=== PATIENT | female | born 1975 | race Hispanic/Latino ===

== ENCOUNTER 2022-07-28 07:55 | Emergency (ER) | payer OTHER ==
[~2022-07-28] VITALS: Ht 157.5 cm; Wt 61.7 kg
[2022-07-28] MEDS ORDERED: LACTATED RINGERS 1000ML 1,000 ML IV ONE (08:00)
[2022-07-28 08:16] LABS: BASOPHILS % (AUTO) 0.6 % (0.0-5.0); EOSINOPHILS % (AUTO) 0.6 % (0.0-8.0); HEMATOCRIT 42.1 % (36-48); LYMPHOCYTES % (AUTO) 13.5 % (21.0-51.0); MEAN CORPUSCULAR HEMOGLOBIN 31.3 pg (27.0-33.0); MEAN CORPUSCULAR HGB CONC 32.8 g/dL (32.0-36.0); MEAN CORPUSCULAR VOLUME 95.5 fL (79-99); MONOCYTES % (AUTO) 3.6 % (3.0-13.0); NEUTROPHILS % (AUTO) 81.4 % (40.0-77.0); PLATELET COUNT (AUTO) 308 K/uL (130-400); RED BLOOD CELL COUNT(AUTO) 4.41 MIL/uL (4.00-5.50); RED CELL DISTRIBUTION WIDTH 13.2 % (11.0-15.5); WHITE BLOOD COUNT (AUTO) 9.1 K/uL (4.8-10.8)
[2022-07-28] MEDS ORDERED: MORPHINE 2 MG SYG ONE (08:20)
[2022-07-28] MEDS ORDERED: ONDANSETRON 4MG INJ ONE (08:20)
[2022-07-28 08:22] LABS: APPEARANCE,URINE CLOUDY (CLEAR); BILIRUBIN,URINE NEGATIVE (NEGATIVE); COLOR,URINE LIGHT-ORANGE (YELLOW); GLUCOSE, URINE (UA) NEGATIVE (NEGATIVE); KETONES,URINE NEGATIVE (NEGATIVE); LEUKOCYTE ESTERASE ,URINE 75 Leu/uL (NEGATIVE); NITRATE,URINE NEGATIVE (NEGATIVE); OCCULT BLOOD,URINE LARGE (NEGATIVE); PROTEIN,URINE 30 mg/dL (NEGATIVE); UROBILINOGEN,URINE 0.2 mg/dL (0.2-1.0)
[2022-07-28 08:26] LABS: INR 0.93 (0.85-1.15); PROTHROMBIN TIME 9.5 SEC (9.6-11.6)
[2022-07-28] MEDS ORDERED: MORPHINE 2 MG SYG IVP ONE (08:30)
[2022-07-28] MEDS ORDERED: ONDANSETRON 4MG INJ IVP ONE (08:30)
[2022-07-28 08:33] LABS: CREATININE 0.9 mg/dL (0.5-1.5); POTASSIUM 3.8 mmol/L (3.5-5.1)
[2022-07-28 08:41] LABS: BACTERIA,URINE RARE /HPF (None Seen); MUCUS,URINE RARE LPF (None Seen); RBC,URINE TNTC /HPF (0-1); SQUAMOUS EPITHELIAL CELL,UR FEW /HPF (0-2); YEAST,URINE BUDDING RARE /HPF (None Seen)
[2022-07-28 08:44] LABS: ALBUMIN 3.8 g/dL (3.5-5.0); B-TYPE NATRIURETIC PEPTIDE 9 pg/mL (0-100); TOTAL PROTEIN, SERUM 7.7 g/dL (6.0-8.3)
[2022-07-28] MEDS ORDERED: KETOROLAC 15MG/ML VIAL (15MG/ML) ONE (09:38)
[2022-07-28] MEDS ORDERED: TAMSULOSIN HCL 0.4 MG CAP.ER.24H ONE (09:38)
[2022-07-28] MEDS ORDERED: KETO10TA2 PO (09:47)
[2022-07-28] MEDS ORDERED: TAMS-1 PO (09:47)
[2022-07-28] MEDS ORDERED: CEPH500B PO (09:47)
[2022-07-28 09:49] VITALS: BP 144/68
[2022-07-28] MEDS ORDERED: TAMSULOSIN HCL 0.4 MG CAP.ER.24H PO ONE (10:00)
[2022-07-28] MEDS ORDERED: KETOROLAC 15MG/ML VIAL (15MG/ML) IV ONE (10:00)
== END 2022-07-28 09:52 | disposition home or self-care (01) ==
LOC: EDH 07:55
DX: N39.0 Urinary tract infection, site not specified (principal); N20.1 Calculus of ureter; M41.9 Scoliosis, unspecified; Z90.49 Acquired absence of other specified parts of digestive tract
CPT/HCPCS: 99285; 74176; 96374; 71045; 96375; 82550; 84484; 80053; 83880; 85025; 85610; 87077; 87088; 87186; 81001; 81025; 36415; 93005; J2405; J1885